=== PATIENT | male | born 1970 | race Caucasian/White ===

== ENCOUNTER 2017-05-27 16:27 | Emergency (ER) | payer OTHER ==
[~2017-05-27] VITALS: Ht 185.4 cm; Wt 72.9 kg
[2017-05-27 16:35] VITALS: BP 147/76
[2017-05-27] MEDS ORDERED: FLEXERIL10 MG PO (17:33)
[2017-05-27] MEDS ORDERED: PERCOCET 5/31 TABLET PO (17:33)
== END 2017-05-27 18:25 | disposition home or self-care (01) ==
LOC: EME 16:27
DX: S42.251A Displaced fracture of greater tuberosity of right humerus, initial encounter for closed fracture (principal); S40.011A Contusion of right shoulder, initial encounter; V00.321A Fall from snow-skis, initial encounter; Y93.23 Activity, snow (alpine) (downhill) skiing, snowboarding, sledding, tobogganing and snow tubing; Y92.838 Other recreation area as the place of occurrence of the external cause
CPT/HCPCS: 73030; 99281; 99284